=== PATIENT | female | born 1935 | race Caucasian/White ===

== ENCOUNTER 2016-08-30 12:00 | Emergency (ER) | payer MEDICARE, OTHER ==
[~2016-08-30] VITALS: Ht 165.1 cm; Wt 74.8 kg
[2016-08-30 12:13] VITALS: BP 129/73
--- NOTE | 2016-08-30 12:59 | NUR ---
PT TO RADIOLOGY FOR HEAD CT SCAN VIA [facility].
== END 2016-08-30 13:51 | disposition home or self-care (01) ==
LOC: ER 12:06
DX: S00.01XA Abrasion of scalp, initial encounter (principal); E11.9 Type 2 diabetes mellitus without complications; I10 Essential (primary) hypertension; M81.0 Age-related osteoporosis without current pathological fracture; Z88.6 Allergy status to analgesic agent; Z88.5 Allergy status to narcotic agent; Z88.0 Allergy status to penicillin; Z88.8 Allergy status to other drugs, medicaments and biological substances; W20.8XXA Other cause of strike by thrown, projected or falling object, initial encounter; Y93.89 Activity, other specified; Y92.89 Other specified places as the place of occurrence of the external cause; Y99.9 Unspecified external cause status
CPT/HCPCS: 70450; 99284; A4606; Z7610

== ENCOUNTER 2016-09-19 08:16 | Outpatient (CLI) | payer MEDICARE, MEDICAID | END 2016-09-19 23:59 | disposition home or self-care (01) | LOC: CT 08:16 | DX: M48.02 Spinal stenosis, cervical region (principal); M47.892 Other spondylosis, cervical region; M85.88 Other specified disorders of bone density and structure, other site; M12.88 Other specific arthropathies, not elsewhere classified, other specified site; M77.8 Other enthesopathies, not elsewhere classified; M43.22 Fusion of spine, cervical region; M40.292 Other kyphosis, cervical region | CPT/HCPCS: 72125-TC ==

== ENCOUNTER 2023-05-16 12:20 | Inpatient (IN) | payer MEDICARE, OTHER ==
[~2023-05-16] VITALS: Ht 157.5 cm; Wt 86.2 kg
[2023-05-16] MEDS ORDERED: CLINDAMYCIN 900 MG/6 ML VIAL ONE (13:53)
[2023-05-16] MEDS: CLINDAMYCIN 900 MG in IV D5W 50 ML IV STA (13:54)
[2023-05-16 13:55] LABS: BASOPHILS % (AUTO) 0.1 % (0.0-2.0); EOSINOPHILS % (AUTO) 0.4 % (0.0-6.0); HEMATOCRIT 36 % (33-45); HEMOGLOBIN 12.3 g/dL (11.5-14.8); LYMPHOCYTES # (AUTO) 0.8 K/uL (0.8-4.8); LYMPHOCYTES % (AUTO) 6.1 % (20.0-44.0); MEAN CORPUSCULAR HEMOGLOBIN 33 PG (26.0-33.0); MEAN CORPUSCULAR HGB CONC 34 g/dl (31.0-36.0); MEAN CORPUSCULAR VOLUME 98 fL (82-100); MONOCYTES # (AUTO) 1.1 K/uL (0.1-1.30); MONOCYTES % (AUTO) 8.6 % (2.0-12.0); NEUTROPHILS # (AUTO) 10.8 K/uL (1.8-8.9); NEUTROPHILS % (AUTO) 84.8 % (43.0-81.0); PLATELET COUNT (AUTO) 217 K/uL (150-450); RED BLOOD CELL COUNT(AUTO) 3.71 MIL/uL (4.0-5.2); WHITE BLOOD COUNT (AUTO) 12.7 K/uL (4.3-11.0)
[2023-05-16 14:08] LABS: APPEARANCE,URINE CLEAR (CLEAR); BILIRUBIN,URINE NEGATIVE (NEGATIVE); BLOOD, URINE TRACE-INTA Ery/uL (NEGATIVE); COLOR,URINE YELLOW (YELLOW); KETONES,URINE NEGATIVE (NEGATIVE); LEUKOCYTE ESTERASE ,URINE 2+ (NEGATIVE); NITRITE, URINE NEGATIVE (NEGATIVE); PH,URINE 5.5 (5.0-8.0); PROTEIN,URINE NEGATIVE (NEGATIVE); UGLUCOSE NEGATIVE (NEGATIVE); UROBILINOGEN,URINE 0.2 EU/dL (0.2)
[2023-05-16 14:09] LABS: CALCIUM, SERUM 8.7 mg/dL (8.5-10.1); CARBON DIOXIDE 28 mmol/L (21-32); CHLORIDE 97 mmol/L (98-107); CREATININE 1.1 mg/dL (0.6-1.3); GLUCOSE 176 mg/dL (74-106); POTASSIUM 3.8 mmol/L (3.5-5.1); SODIUM SERUM 133 mmol/L (136-145); UREA NITROGEN, BLOOD 24 mg/dL (7-18)
[2023-05-16 14:19] LABS: LACTIC ACID 1.6 mmol/L (0.4-2.0)
[2023-05-16 14:36] LABS: RBC,URINE 0-2 /HPF (0-2)
[2023-05-16 14:38] LABS: ADD URINE CULTURE YES; BACTERIA,URINE Many /HPF (None Seen)
[2023-05-16] MEDS ORDERED: GLIM4TAB37 PO (16:18)
[2023-05-16] MEDS ORDERED: TRAM50TA2 PO (16:18)
[2023-05-16] MEDS ORDERED: PANT40TA49 PO (16:18)
[2023-05-16] MEDS ORDERED: IRBE150T28 PO (16:18)
[2023-05-16] MEDS ORDERED: SITA1TAB2 PO (16:18)
[2023-05-16] MEDS ORDERED: BISO5TAB20 PO (16:18)
[2023-05-16] MEDS ORDERED: VALA10002 PO (16:18)
[2023-05-16] MEDS ORDERED: FURO40TA5 PO (16:18)
[2023-05-16] MEDS ORDERED: VIT1CAPS6 PO (16:18)
[2023-05-16] MEDS ORDERED: DEXTROSE 50%-WATER 50 ML DISP.SYRIN IV PRN (17:00)
[2023-05-16] MEDS ORDERED: ACETAMINOPHEN 325 MG TABLET PO PRN (17:00)
[2023-05-16] MEDS ORDERED: MAG HYDROX/AL HYDROX/SIMETH 30 ML UDC PO PRN (17:00)
[2023-05-16] MEDS ORDERED: MAGNESIUM HYDROXIDE 30 ML UDC PO PRN (17:00)
[2023-05-16] MEDS ORDERED: HYDROCODONE/APAP 5/325MG TABLET PO PRN (17:00)
[2023-05-16] MEDS ORDERED: Z GUARD REMEDY 4 OZ OINT TP PRN (17:00)
[2023-05-16] MEDS ORDERED: ONDANSETRON HCL/PF 4 MG/2 ML VIAL IVP PRN (17:00)
[2023-05-16] MEDS ORDERED: TRAMADOL HCL 50 MG TABLET PO PRN (17:00)
[2023-05-16] MEDS: BLOOD SUGAR DIAGNOSTIC 1 EACH STRIP IN SCH (17:43)
[2023-05-16] MEDS: VALACYCLOVIR HCL 500 MG TABLET PO SCH (17:43)
[2023-05-16] MEDS: BISOPROLOL FUMARATE 5 MG TABLET PO SCH (18:00)
[2023-05-16] MEDS: CEFEPIME 2 GM in IV D5W 100 ML IV SCH (18:23)
[2023-05-16 18:40] VITALS: BP 108/61; TEMP 98.1; O2SAT 94
[2023-05-16] MEDS: IV NS 0.9% 1,000 ML IV PRN (18:53)
[2023-05-16 20:00] VITALS: BP 113/55; TEMP 97.3; O2SAT 93
[2023-05-16 20:09] VITALS: BP 113/55; TEMP 97.3; O2SAT 93
[2023-05-16] MEDS: INSULIN REGULAR, HUMAN 100 UNIT/ML 3 ML VIAL SQ PRN (21:38)
[2023-05-17 07:30] VITALS: BP 118/58; TEMP 98.6; O2SAT 90
[2023-05-17 07:35] LABS: BASOPHILS # (AUTO) 0.1 K/uL (0.0-0.2); BASOPHILS % (AUTO) 0.5 % (0.0-2.0); EOSINOPHILS # (AUTO) 0.1 K/uL (0.0-0.7); EOSINOPHILS % (AUTO) 1.3 % (0.0-6.0); HEMATOCRIT 32 % (33-45); HEMOGLOBIN 10.9 g/dL (11.5-14.8); LYMPHOCYTES # (AUTO) 1.1 K/uL (0.8-4.8); LYMPHOCYTES % (AUTO) 9.8 % (20.0-44.0); MEAN CORPUSCULAR HEMOGLOBIN 33 PG (26.0-33.0); MEAN CORPUSCULAR HGB CONC 34 g/dl (31.0-36.0); MEAN CORPUSCULAR VOLUME 97 fL (82-100); MONOCYTES # (AUTO) 1.2 K/uL (0.1-1.30); MONOCYTES % (AUTO) 10.4 % (2.0-12.0); NEUTROPHILS # (AUTO) 9.2 K/uL (1.8-8.9); PLATELET COUNT (AUTO) 227 K/uL (150-450); RED BLOOD CELL COUNT(AUTO) 3.31 MIL/uL (4.0-5.2); RED CELL DISTRIBUTION WIDTH 14.1 % (11.5-15.0); WHITE BLOOD COUNT (AUTO) 11.7 K/uL (4.3-11.0)
[2023-05-17 08:05] LABS: CALCIUM, SERUM 8.2 mg/dL (8.5-10.1); MAGNESIUM 2.1 mg/dL (1.8-2.4); POTASSIUM 4.5 mmol/L (3.5-5.1)
[2023-05-17 08:37] LABS: THYROID STIMULATING HORMONE 1.491 uIU/mL (0.358-3.74)
[2023-05-17] MEDS: MULTIVITAMIN/LUTEIN/MINERALS 1 TAB PO SCH (09:35)
[2023-05-17] MEDS: LOSARTAN POTASSIUM 50 MG TABLET PO SCH (09:37)
[2023-05-17 15:49] VITALS: BP 119/60; TEMP 98.6; O2SAT 91
[2023-05-17 20:00] VITALS: BP 113/60; TEMP 98.6; O2SAT 93
[2023-05-18 07:25] LABS: BASOPHILS # (AUTO) 0.1 K/uL (0.0-0.2); BASOPHILS % (AUTO) 0.5 % (0.0-2.0); EOSINOPHILS # (AUTO) 0.2 K/uL (0.0-0.7); HEMATOCRIT 32 % (33-45); HEMOGLOBIN 10.8 g/dL (11.5-14.8); LYMPHOCYTES # (AUTO) 1.7 K/uL (0.8-4.8); LYMPHOCYTES % (AUTO) 14.2 % (20.0-44.0); MEAN CORPUSCULAR HEMOGLOBIN 32 PG (26.0-33.0); MEAN CORPUSCULAR HGB CONC 33 g/dl (31.0-36.0); MEAN CORPUSCULAR VOLUME 96 fL (82-100); MONOCYTES # (AUTO) 1.2 K/uL (0.1-1.30); NEUTROPHILS # (AUTO) 8.7 K/uL (1.8-8.9); NEUTROPHILS % (AUTO) 73.3 % (43.0-81.0); PLATELET COUNT (AUTO) 228 K/uL (150-450); RED BLOOD CELL COUNT(AUTO) 3.34 MIL/uL (4.0-5.2); RED CELL DISTRIBUTION WIDTH 14.1 % (11.5-15.0); WHITE BLOOD COUNT (AUTO) 11.8 K/uL (4.3-11.0)
[2023-05-18 07:30] VITALS: BP 136/62; TEMP 98.1; O2SAT 92
[2023-05-18 07:43] LABS: CALCIUM, SERUM 8.7 mg/dL (8.5-10.1); CARBON DIOXIDE 27 mmol/L (21-32); CHLORIDE 103 mmol/L (98-107); GLUCOSE 173 mg/dL (74-106); POTASSIUM 4.7 mmol/L (3.5-5.1); SODIUM SERUM 136 mmol/L (136-145); UREA NITROGEN, BLOOD 17 mg/dL (7-18)
[2023-05-18] MEDS: THERAHONEY GEL 1.5 OZ TUBE TP SCH (10:46)
[2023-05-18] MEDS: PROSOURCE / PROSTAT (PYXIS) 30 ML UDC PO SCH (12:24)
[2023-05-18 16:00] VITALS: BP 137/67; TEMP 97.3; O2SAT 92
[2023-05-18] MEDS: ARGININE/GLUTAMINE/CALCIUM BMB 1 EACH POWD.PACK PO SCH (17:04)
[2023-05-18 20:00] VITALS: BP 116/59; TEMP 97.8; O2SAT 94
[2023-05-19 07:18] LABS: BASOPHILS # (AUTO) 0.1 K/uL (0.0-0.2); BASOPHILS % (AUTO) 0.6 % (0.0-2.0); EOSINOPHILS # (AUTO) 0.3 K/uL (0.0-0.7); EOSINOPHILS % (AUTO) 2.4 % (0.0-6.0); HEMATOCRIT 30 % (33-45); HEMOGLOBIN 10.2 g/dL (11.5-14.8); LYMPHOCYTES # (AUTO) 1.4 K/uL (0.8-4.8); LYMPHOCYTES % (AUTO) 11.2 % (20.0-44.0); MEAN CORPUSCULAR HEMOGLOBIN 33 PG (26.0-33.0); MEAN CORPUSCULAR HGB CONC 34 g/dl (31.0-36.0); MEAN CORPUSCULAR VOLUME 96 fL (82-100); MONOCYTES # (AUTO) 1.3 K/uL (0.1-1.30); MONOCYTES % (AUTO) 10.4 % (2.0-12.0); NEUTROPHILS # (AUTO) 9.3 K/uL (1.8-8.9); NEUTROPHILS % (AUTO) 75.4 % (43.0-81.0); PLATELET COUNT (AUTO) 250 K/uL (150-450); RED BLOOD CELL COUNT(AUTO) 3.11 MIL/uL (4.0-5.2); RED CELL DISTRIBUTION WIDTH 14.1 % (11.5-15.0); WHITE BLOOD COUNT (AUTO) 12.4 K/uL (4.3-11.0)
[2023-05-19 07:49] LABS: CALCIUM, SERUM 8.9 mg/dL (8.5-10.1); CREATININE 0.9 mg/dL (0.6-1.3); POTASSIUM 4.7 mmol/L (3.5-5.1)
[2023-05-19 08:00] VITALS: BP 126/66; TEMP 98.5; O2SAT 94
[2023-05-19 08:29] VITALS: BP 131/70
[2023-05-19] MEDS ORDERED: METF500S7 PO (12:33)
== END 2023-05-19 15:15 | disposition home health service (06) | DRG 637 ==
LOC: ER 12:29 → MED 15:42
PROVIDERS: ADMIT Nurse Practitioner Acute Care
DX: E11.649 Type 2 diabetes mellitus with hypoglycemia without coma (principal); J15.9 Unspecified bacterial pneumonia; L89.153 Pressure ulcer of sacral region, stage 3; D68.59 Other primary thrombophilia; N39.0 Urinary tract infection, site not specified; T38.3X5A Adverse effect of insulin and oral hypoglycemic [antidiabetic] drugs, initial encounter; B02.9 Zoster without complications; Z74.09 Other reduced mobility; I10 Essential (primary) hypertension; K21.9 Gastro-esophageal reflux disease without esophagitis; Z79.84 Long term (current) use of oral hypoglycemic drugs; Z88.0 Allergy status to penicillin; E66.9 Obesity, unspecified; Z68.34 Body mass index [BMI] 34.0-34.9, adult; R53.1 Weakness
CPT/HCPCS: 36415; 71045-TC; 80048-TC; 80061-TC; 81001; 82962-TC; 83605-TC; 83735-TC; 84100-TC; 84443-TC; 85025-TC; 87040-TC; 87086-TC; 97110-TC; 97112-TC; 97530-TC; 97535-TC; A4223; G0378; J0692; J1815; J3490; J7030; J7060